=== PATIENT | male | born 1980 | race Caucasian/White ===

== ENCOUNTER 2017-01-05 14:40 | Outpatient (CLI) | payer BC ==
[2014-01-28 12:32] VITALS: BP 122/73
--- NOTE | 2017-01-05 15:27 | Diagnostic Imaging Report ---
PAZ EATON [facility] [id number] [facility].[address] [id number] Report Submission Date: Jan 05, 2017 3:11:14 PM CDT Patient Study Name: STEFANIE STEVENS Date: Jan 05, 2017 2:53:08 PM CDT Modality Type: CR Gender: M Description: CHEST : 84 Institution: [facility] Physician: PAZ EATON Examination: PA and lateral chest. History: Evaluate lung montiel. Findings: PA lateral chest demonstrate a normal cardiac and mediastinal silhouette. No focal infiltrate. No effusion. No blunting of the costophrenic margins. Osseous structures are appropriate for age. Impression: No acute process. Electronically signed on Jan 05, 2017 3:11:14 PM CDT by: Jaison RALPH
== END 2017-01-05 14:42 ==
LOC: RAD 14:40
PROVIDERS: ATTEND Physician Assistant
DX: R79.81 Abnormal blood-gas level (principal)
CPT/HCPCS: 71020